=== PATIENT | female | born 1935 | race Caucasian/White ===

== ENCOUNTER 2020-12-22 09:11 | Observation (INO) | payer MEDICARE ==
[~2020-12-22 09:11] MED LIST: PREMYELOGRAM MEDICATION REVIEW 1 EACH MISC PO NR
--- NOTE | 2020-12-22 09:28 | ED ---
General Adult HPI - General Time Seen by Provider: 12/22/20 09:11 Source: patient, RN notes reviewed, old records reviewed - History of Present Illness Initial comments: This is an 85-year-old female has past medical history significant for high blood pressure and a valve replacement. Patient comes in today because she was scheduled for a myelogram and while she was there it was noted that her heart rate dipped into the 30s and they wanted her to be evaluated. Patient states over the last couple of months she's noticed that she is much weaker than normal. Patient while lying in bed states she is asymptomatic. - Related Data Home Medications Medication Instructions Recorded Confirmed Aspirin [Adult Low Dose Aspirin EC] 81 mg PO DAILY 11/24/20 12/22/20 DULoxetine HCL [Cymbalta] 60 mg PO DAILY 11/24/20 12/22/20 Gabapentin [Neurontin] 100 mg PO TID 11/24/20 12/22/20 HYDROcodone/APAP 10-325MG [[place] 1 tab PO TID PRN 11/24/20 12/22/20 10-325] Losartan Potassium [Cozaar] 25 mg PO DAILY 11/24/20 12/22/20 Metoprolol Succinate [Toprol XL] 25 mg PO DAILY 11/24/20 12/22/20 Multivit-Min/Iron/Folic/Lutein 1 tab PO DAILY 11/24/20 12/22/20 [Centrum Silver Women Tablet] Naproxen Sodium [Aleve] 220 mg PO BID PRN 11/24/20 12/22/20 Pravastatin Sodium [Pravachol] 80 mg PO HS 11/24/20 12/22/20 Vit C/E/Zn/Coppr/Lutein/Zeaxan 1 cap PO DAILY 11/24/20 12/22/20 [Preservision Areds 2 Softgel] Calcium Carbonate [Tums] 500 mg PO QID PRN 12/22/20 12/22/20 Dizzy Stop Herbal 1 cap PO DAILY PRN 12/22/20 12/22/20 Pantoprazole [Protonix] 40 mg PO DAILY 12/22/20 12/22/20 Tolterodine ER [Detrol LA] 4 mg PO DAILY 12/22/20 12/22/20 Allergies Allergy/AdvReac Type Severity Reaction Status Date / Time No Known Allergies Allergy Verified 12/22/20 09:28 Review of Systems ROS Statement: Those systems with pertinent positive or pertinent negative responses have been documented in the HPI. ROS Other: All systems not noted in ROS Statement are negative. Past Medical History Past Medical History: Diabetes Mellitus, Hyperlipidemia, Hypertension Additional Past Medical History / Comment(s): macular degeneration causing her to be dizzy at times, lumbar back pain radiate to bilateral legs, weakness, and falls frequently. History of Any Multi-Drug Resistant Organisms: None Reported Past Surgical History: Cardiac Valve Replacement, Joint Replacement, Tubal Ligation Additional Past Surgical History / Comment(s): bovin heart valve, abdominal aort ic aneursym repair, bilateral hip replacement, hip revision, Past Anesthesia/Blood Transfusion Reactions: No Reported Reaction Past Psychological History: Depression Additional Psychological History / Comment(s): insomnia Smoking Status: Former smoker Past Alcohol Use History: None Reported Past Drug Use History: None Reported General Exam - General Exam Comments Initial Comments: GENERAL: Patient is well-developed and well-nourished. Patient is nontoxic and well- hydrated and is in mild distress. ENT: Neck is soft and supple. No significant lymphadenopathy is noted. Oropharynx is clear. Moist mucous membranes. Neck has full range of motion without eliciting any pain. EYES: The sclera were anicteric and conjunctiva were pink and moist. Extraocular movements were intact and pupils were equal round and reactive to light. Eyelids were unremarkable. PULMONARY: Unlabored respirations. Good breath sounds bilaterally. No audible rales rhonchi or wheezing was noted. CARDIOVASCULAR: Patient has a regular bradycardic rhythm at about 40 beats a minute ABDOMEN: Soft and nontender with normal bowel sounds. SKIN: Skin is clear with no lesions or rashes and otherwise unremarkable. NEUROLOGIC: Patient is alert and oriented x3. Cranial nerves II through XII are grossly intact. Motor and sensory are also intact. Normal speech, volume and content. Symmetrical smile. MUSCULOSKELETAL: Normal extremities with adequate strength and full range of motion. LYMPHATICS: No significant lymphadenopathy is noted PSYCHIATRIC: Normal psychiatric evaluation. Course Vital Signs 12/22/20 12/22/20 12/22/20 08:25 09:25 09:30 Temperature 98.8 F Pulse Rate 32 L 34 L Pulse Rate [ 34 L Pulse Oximetery ] Respiratory 18 16 18 Rate Blood Pressure 132/83 132/83 Blood Pressure 184/68 [Left Arm] O2 Sat by Pulse 97 98 93 L Oximetry 12/22/20 12/22/20 09:38 10:30 Temperature Pulse Rate 36 L Pulse Rate [ 35 L Pulse Oximetery ] Respiratory 18 Rate Blood Pressure 154/78 Blood Pressure [Left Arm] O2 Sat by Pulse 100 Oximetry Medical Decision Making - Medical Decision Making EKG shows a sinus bradycardia at 32 beats a minute with a second-degree AV block Mobitz type II AL interval is 238 QRS is 152 QT interval is 552 QTC is 402. chest x-ray shows no acute abnormality. I spoke with some physicians agreed to admit the patient admitted the patient wrote admitting orders. I consulted cardiology - Lab Data Result diagrams: 12/22/20 09:37 12/22/20 09:37 Lab Results 12/22/20 12/22/20 12/22/20 Range/Units 09:37 09:37 09:37 WBC 7.9 (3.8-10.6) k/uL RBC 4.56 (3.80-5.40) m/uL Hgb 13.6 (11.4-16.0) gm/dL Hct 40.3 (34.0-46.0) % MCV 88.3 (80.0-100.0) fL MCH 29.9 (25.0-35.0) pg MCHC 33.9 (31.0-37.0) g/dL RDW 13.9 (11.5-15.5) % Plt Count 471 H (150-450) k/uL MPV 9.1 Neutrophils % 70 % Lymphocytes % 14 % Monocytes % 10 % Eosinophils % 5 % Basophils % 1 % Neutrophils # 5.5 (1.3-7.7) k/uL Lymphocytes # 1.1 (1.0-4.8) k/uL Monocytes # 0.8 (0-1.0) k/uL Eosinophils # 0.4 (0-0.7) k/uL Basophils # 0.1 (0-0.2) k/uL PT 10.8 (9.0-12.0) sec INR 1.0 (<1.2) APTT 18.9 L (22.0-30.0) sec Sodium 139 (137-145) mmol/L Potassium 5.0 (3.5-5.1) mmol/L Chloride 105 (98-107) mmol/L Carbon Dioxide 27 (22-30) mmol/L Anion Gap 7 mmol/L BUN 27 H (7-17) mg/dL Creatinine 0.94 (0.52-1.04) mg/dL Est GFR (CKD-EPI)AfAm 65 (>60 ml/min/1.73 sqM) Est GFR (CKD-EPI)NonAf 56 (>60 ml/min/1.73 sqM) Glucose 99 (74-99) mg/dL Calcium 9.7 (8.4-10.2) mg/dL Magnesium 1.9 (1.6-2.3) mg/dL Total Bilirubin 0.8 (0.2-1.3) mg/dL AST 31 (14-36) U/L ALT 16 (4-34) U/L Alkaline Phosphatase 78 (38-126) U/L Troponin I (0.000-0.034) ng/mL Total Protein 7.3 (6.3-8.2) g/dL Albumin 4.2 (3.5-5.0) g/dL Coronavirus (PCR) (Not Detectd) 12/22/20 12/22/20 Range/Units 09:37 09:37 WBC (3.8-10.6) k/uL RBC (3.80-5.40) m/uL Hgb (11.4-16.0) gm/dL Hct (34.0-46.0) % MCV (80.0-100.0) fL MCH (25.0-35.0) pg MCHC (31.0-37.0) g/dL RDW (11.5-15.5) % Plt Count (150-450) k/uL MPV Neutrophils % % Lymphocytes % % Monocytes % % Eosinophils % % Basophils % % Neutrophils # (1.3-7.7) k/uL Lymphocytes # (1.0-4.8) k/uL Monocytes # (0-1.0) k/uL Eosinophils # (0-0.7) k/uL Basophils # (0-0.2) k/uL PT (9.0-12.0) sec INR (<1.2) APTT (22.0-30.0) sec Sodium (137-145) mmol/L Potassium (3.5-5.1) mmol/L Chloride (98-107) mmol/L Carbon Dioxide (22-30) mmol/L Anion Gap mmol/L BUN (7-17) mg/dL Creatinine (0.52-1.04) mg/dL Est GFR (CKD-EPI)AfAm (>60 ml/min/1.73 sqM) Est GFR (CKD-EPI)NonAf (>60 ml/min/1.73 sqM) Glucose (74-99) mg/dL Calcium (8.4-10.2) mg/dL Magnesium (1.6-2.3) mg/dL Total Bilirubin (0.2-1.3) mg/dL AST (14-36) U/L ALT (4-34) U/L Alkaline Phosphatase (38-126) U/L Troponin I <0.012 (0.000-0.034) ng/mL Total Protein (6.3-8.2) g/dL Albumin (3.5-5.0) g/dL Coronavirus (PCR) Not Detected (Not Detectd) Disposition Clinical Impression: Bradycardia Disposition: ADMITTED IP TO THIS HOSP Referrals: Varun Maher MD [Primary Care Provider] - 1-2 days Time of Disposition: 11:20
[2020-12-22] MEDS ORDERED: ATROPINE SULFATE 0.1 MG/ML 10ML SYRINGE IV STA (09:45)
[2020-12-22 09:49] LABS: Basophils # (A) 0.1 k/uL (0-0.2); Basophils % (A) 1 %; Eosinophils # (A) 0.4 k/uL (0-0.7); Eosinophils % (A) 5 %; HCT 40.3 % (34.0-46.0); HGB 13.6 gm/dL (11.4-16.0); Lymphocytes # (A) 1.1 k/uL (1.0-4.8); Lymphocytes % (A) 14 %; MCH 29.9 pg (25.0-35.0); MCHC 33.9 g/dL (31.0-37.0); MCV 88.3 fL (80.0-100.0); Mean Platelet Volume 9.1; Monocytes # (A) 0.8 k/uL (0-1.0); Monocytes % (A) 10 %; Neutrophils # (A) 5.5 k/uL (1.3-7.7); Neutrophils % (A) 70 %; Platelet Count 471 k/uL (150-450); RBC 4.56 m/uL (3.80-5.40); RDW 13.9 % (11.5-15.5); WBC 7.9 k/uL (3.8-10.6)
[2020-12-22] MEDS ORDERED: KETOROLAC 15 MG/ML 1 ML VIAL IM STA (10:01)
[2020-12-22 10:07] LABS: Albumin 4.2 g/dL (3.5-5.0); Calcium 9.7 mg/dL (8.4-10.2); Magnesium 1.9 mg/dL (1.6-2.3); Total Bilirubin 0.8 mg/dL (0.2-1.3); Total Protein 7.3 g/dL (6.3-8.2)
[2020-12-22 10:14] LABS: Prothrombin Time 10.8 sec (9.0-12.0)
[2020-12-22 10:19] LABS: Partial Thromboplastin Time 18.9 sec (22.0-30.0)
--- NOTE | 2020-12-22 11:05 | XR ---
EXAMINATION TYPE: XR lumbosacral spine min 4V DATE OF EXAM: 12/22/2020 Comparison: 11/15/2020 Clinical History: 85-year-old female with fall and pain . Findings: IVC filter. Left-sided common iliac vascular stent. Multiple surgical clips in the pelvis. Osteopenia . Severe hypertrophic facet arthropathy throughout. Severe degenerative disc disease throughout. Baas trup's disease. Patchy sclerosis throughout. Degenerative grade 1 retrolisthesis L1-L2 and L2-L3 and grade 1 anterolisthesis L4-L5. [facility] within the lower thoracic spine. Impression: 1. Advanced hypertrophic facet arthropathy and advanced degenerative disc disease throughout. Degener ative grade 1 spondylolistheses L1-L2, L2-L3, and L4-L5. 2. No vertebral compression collapse is identified. 3. Diffuse patchy sclerosis may be sclerosis reactive to the advanced degenerative changes. Correlate for any known primary neoplasm to exclude osteoblastic metastases. Consideration can be given to nuc le[facility] medicine whole body bone scan if clinically indicated. 4. 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
[2020-12-22] MEDS ORDERED: SODIUM CHLORIDE 0.9% 1,000 ML IV ONE (11:21)
--- NOTE | 2020-12-22 14:08 | P.CRDCN ---
History of Present Illness Consult date: 12/22/20 History of present illness: HISTORY OF PRESENT ILLNESS: This is a 85-year-old female with a past medical history significant for hypertension, hyperlipidemia, diabetes mellitus, chronic lumbar back pain, abdominal aortic aneurysm repair, and history of heart valve replacement. Patient states she lives in [place]. 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 We have been asked to see the patient in consultation for bradycardia. Patient examined at the bedside with Dr. Agustin. Patient was scheduled for myelogram today in interventional radiology that was ordered by Dr. Valentin. Patient was found to bradycardic with a heart rate in the 30-40s. Patient denied a history of bradycardia in the past. Patients procedure was cancelled and she was admitted to the hospital for further evaluation. Patient reports since the beginning of the year she has been very fatigued with low energy levels. She reports having multiple episodes of falling since that time too which she states she was previously not experiencing. She reports feeling dizzy and lightheaded occasionally as well. She takes Metoprolol succinate 25mg at home. Patient reports having a valve replacement at [facility] in the past. EKG reveals second degree heart block Chest xray pending at the time of dictation Laboratory data: WBC 7.9. Hemoglobin 13.6. Platelet count 471. Sodium 139. Potassium 5.0. BUN 27. Creatinine 0.94. Magnesium 1.9. Current home cardiac medications include aspirin 81 mg daily, Pravachol 80 mg daily, losartan 25 mg daily, metoprolol succinate 25 mg daily REVIEW OF SYSTEMS: At the time of my exam: CONSTITUTIONAL: Denies fever or chills. HEENT: Denies blurred vision, vision changes, or eye pain. Denies hemoptysis CARDIOVASCULAR: Denies chest pain. Denies orthopnea. Denies PND. Denies palpitations RESPIRATORY: Denies shortness of breath. GASTROINTESTINAL: Denies abdominal pain. Denies nausea or vomiting. HEMATOLOGIC: Denies bleeding disorders. GENITOURINARY: Denies any blood in urine. SKIN: Denies pruitis. Denies rash. PHYSICAL EXAM: VITAL SIGNS: Reviewed. GENERAL: Well-developed in no acute distress. HEENT: Head is normocephalic. Pupils are equal, round. Sclerae anicteric. Mucous membranes of the mouth are moist. Neck supple. No JVD or thyromegaly LUNGS: Respirations even and unlabored. Lungs essentially clear to auscultation bilaterally. HEART: Regular rate and rhythm. S1 and S2 heard. Soft systolic murmur noted. ABDOMEN: Soft. Nondistended. Nontender. EXTREMITIES: Normal range of motion. No clubbing or cyanosis. Peripheral pulses intact. No lower extremity edema NEUROLOGIC: Awake and alert. Oriented x 3. ASSESSMENT: Bradycardia Second degree heart block with 2:1 conduction Progressive fatigue and falls x 3-4 months Hypertension Hyperlipidemia History of valve replacement, suspected TAVR History of abdominal aortic aneurysm repair PLAN: Discontinue metoprolol. Avoid AV huyen blocking agents Continue telemetry monitoring Repeat EKG in AM Obtain TSH Daily Hibiclens baths No EKG patches to left chest Patient will likely require PPM insertion within the next 48 hours. This was discussed in detail with the patient at the bedside. Obtain records from [facility] from patients valve replacement surgery Further recommendations pending patient course. Nurse practitioner note has been reviewed by physician. Signing provider agrees with the documented findings, assessment, and plan of care. Past Medical History Past Medical History: Diabetes Mellitus, Hyperlipidemia, Hypertension Additional Past Medical History / Comment(s): macular degeneration causing her to be dizzy at times, lumbar back pain radiate to bilateral legs, weakness, and falls frequently. History of Any Multi-Drug Resistant Organisms: None Reported Past Surgical History: Cardiac Valve Replacement, Joint Replacement, Tubal Ligation Additional Past Surgical History / Comment(s): bovin heart valve, abdominal aortic aneursym repair, bilateral hip replacement, hip revision, Past Anesthesia/Blood Transfusion Reactions: No Reported Reaction Past Psychological History: Depression Additional Psychological History / Comment(s): insomnia Smoking Status: Former smoker Past Alcohol Use History: None Reported Past Drug Use History: None Reported Medications and Allergies Home Medications Medication Instructions Recorded Confirmed Type Aspirin [Adult Low Dose Aspirin EC] 81 mg PO DAILY 11/24/20 12/22/20 History DULoxetine HCL [Cymbalta] 60 mg PO DAILY 11/24/20 12/22/20 History Gabapentin [Neurontin] 100 mg PO TID 11/24/20 12/22/20 History HYDROcodone/APAP 10-325MG [[place] 1 tab PO TID PRN 11/24/20 12/22/20 History 10-325] Losartan Potassium [Cozaar] 25 mg PO DAILY 11/24/20 12/22/20 History Metoprolol Succinate [Toprol XL] 25 mg PO DAILY 11/24/20 12/22/20 History Multivit-Min/Iron/Folic/Lutein 1 tab PO DAILY 11/24/20 12/22/20 History [Centrum Silver Women Tablet] Naproxen Sodium [Aleve] 220 mg PO BID PRN 11/24/20 12/22/20 History Pravastatin Sodium [Pravachol] 80 mg PO HS 11/24/20 12/22/20 History Vit C/E/Zn/Coppr/Lutein/Zeaxan 1 cap PO DAILY 11/24/20 12/22/20 History [Preservision Areds 2 Softgel] Calcium Carbonate [Tums] 500 mg PO QID PRN 12/22/20 12/22/20 History Dizzy Stop Herbal 1 cap PO DAILY PRN 12/22/20 12/22/20 History Pantoprazole [Protonix] 40 mg PO DAILY 12/22/20 12/22/20 History Tolterodine ER [Detrol LA] 4 mg PO DAILY 12/22/20 12/22/20 History Allergies Allergy/AdvReac Type Severity Reaction Status Date / Time No Known Allergies Allergy Verified 12/22/20 09:28 Physical Exam Vitals: Vital Signs Temp Pulse Pulse Resp BP BP Pulse Ox 12/22/20 12:33 98 F 12/22/20 12:00 55 L 18 176/83 97 12/22/20 11:57 98.4 F 39 L 16 132/53 92 L 12/22/20 11:00 35 L 18 154/78 97 12/22/20 10:30 36 L 18 154/78 100 12/22/20 09:38 35 L 12/22/20 09:30 34 L 18 132/83 93 L 12/22/20 09:25 98.8 F 32 L 16 132/83 98 12/22/20 08:25 34 L 18 184/68 97 Intake and Output 12/21/20 12/22/20 12/22/20 22:59 06:59 14:59 Other: Weight 68.039 kg Results 12/22/20 09:37 12/22/20 09:37 Cardiac Enzymes 12/22/20 12/22/20 Range/Units 09:37 09:37 AST 31 (14-36) U/L Troponin I <0.012 (0.000-0.034) ng/mL Coagulation 12/22/20 Range/Units 09:37 PT 10.8 (9.0-12.0) sec APTT 18.9 L (22.0-30.0) sec CBC 12/22/20 Range/Units 09:37 WBC 7.9 (3.8-10.6) k/uL RBC 4.56 (3.80-5.40) m/uL Hgb 13.6 (11.4-16.0) gm/dL Hct 40.3 (34.0-46.0) % Plt Count 471 H (150-450) k/uL Comprehensive Metabolic Panel 12/22/20 Range/Units 09:37 Sodium 139 (137-145) mmol/L Potassium 5.0 (3.5-5.1) mmol/L Chloride 105 (98-107) mmol/L Carbon Dioxide 27 (22-30) mmol/L BUN 27 H (7-17) mg/dL Creatinine 0.94 (0.52-1.04) mg/dL Glucose 99 (74-99) mg/dL Calcium 9.7 (8.4-10.2) mg/dL AST 31 (14-36) U/L ALT 16 (4-34) U/L Alkaline Phosphatase 78 (38-126) U/L Total Protein 7.3 (6.3-8.2) g/dL Albumin 4.2 (3.5-5.0) g/dL Current Medications Generic Name Dose Route Start Last Admin Trade Name Freq PRN Reason Stop Dose Admin Hydrocodone Bitart/Acetaminophen 1 each 12/22/20 12:40 Hydrocodone/Apap 10-325mg 1 Each Tab PO TID PRN Pain Aspirin 81 mg 12/23/20 09:00 Aspirin 81 Mg PO DAILY [facility] Calcium Carbonate/Glycine 500 mg 12/22/20 12:40 Calcium Carbonate 500 Mg Chewable PO QID PRN GERD Duloxetine HCl 60 mg 12/23/20 09:00 Duloxetine Hcl 60 Mg Capsule.Dr PO DAILY BUD Gabapentin 100 mg 12/22/20 16:00 Gabapentin 100 Mg Cap PO TID [facility] Sodium Chloride 1,000 mls @ 75 mls/hr 12/22/20 11:21 12/22/20 12:26 Saline 0.9% IV 12/23/20 00:40 75 mls/hr .[id number] ONE Administration Losartan Potassium 25 mg 12/22/20 12:45 Losartan 25 Mg Tab PO DAILY [facility] Multivitamins 1 each 12/23/20 09:00 Multivitamins, Thera 1 Each Tab PO DAILY BUD Multivitamins/Minerals 1 each 12/23/20 09:00 Vit A,C & I-Bhczyk-Qjgrdaic 1 Each Tab PO DAILY BUD Oxybutynin Chloride 10 mg 12/23/20 09:00 Oxybutynin 10 Mg Tab.Er.24 PO DAILY [facility] Pantoprazole Sodium 40 mg 12/23/20 07:30 Pantoprazole 40 Mg Tablet PO AC-BRKFST [facility] Pravastatin Sodium 80 mg 12/22/20 21:00 Pravastatin Sodium 80 Mg Tab PO [facility] Intake and Output 12/21/20 12/22/20 12/22/20 22:59 06:59 14:59 Other: Weight 68.039 kg Patient Weight 12/23/20 06:59 Weight 68.039 kg 12/22/20 09:37 12/22/20 09:37
[2020-12-22] MEDS: HYDROcodone/APAP 10-325MG 1 EACH TAB PO PRN (14:52)
[2020-12-22] MEDS: LOSARTAN 25 MG TAB PO SCH (14:54)
--- NOTE | 2020-12-22 15:35 | XR ---
EXAMINATION TYPE: XR chest 2V DATE OF EXAM: 12/22/2020 COMPARISON: None INDICATION: Chest pain, short of breath TECHNIQUE: Frontal and lateral views of the chest are obtained. FINDINGS: The heart size is normal. The pulmonary vasculature is normal. There are a few scattered patchy infiltrates which are nonspecific. Atypical pneumonia can be conside red. There may be a more focal area of increased density in the retrocardiac region on the lateral pr ojection. Follow-up is recommended. IMPRESSION: 1. Nonspecific infiltrate may be more focal on the lateral projection in the retrocardiac region. Cor relate for pneumonia. Atypical pneumonia could be considered. Follow-up is recommended
[2020-12-22] MEDS ORDERED: ACETAMINOPHEN TAB 325 MG TAB PO PRN (15:57)
--- NOTE | 2020-12-22 16:04 | P.HPIM ---
History of Present Illness H&P Date: 12/22/20 Chief Complaint: Low heart rate This is a 85-year-old female with past medical history noted below significant for prior TAVR presented to the emergency room for further evaluation of elevated blood pressure and low heart rate. Patient was scheduled for a myelogram today and was noted to be bradycardic with a heart rate in the 30s and 40s. Patient herself denies any dizziness or lightheadedness. Her procedure was canceled and she was advised to come to the emergency room for further evaluation. In the ER, 12-lead EKG showed evidence of second-degree heart block. Patient is maintained on metoprolol at home. She was placed on observation with cardiology consultation. Review of Systems Review of system: 14 points review of systems were obtained and were negative except to what were mentioned in the HPI. Past Medical History Past Medical History: Diabetes Mellitus, Hyperlipidemia, Hypertension Additional Past Medical History / Comment(s): macular degeneration causing her to be dizzy at times, lumbar back pain radiate to bilateral legs, weakness, and falls frequently. History of Any Multi-Drug Resistant Organisms: None Reported Past Surgical History: Cardiac Valve Replacement, Joint Replacement, Tubal Ligation Additional Past Surgical History / Comment(s): bovin heart valve, abdominal aortic aneursym repair, bilateral hip replacement, hip revision, Past Anesthesia/Blood Transfusion Reactions: No Reported Reaction Past Psychological History: Depression Additional Psychological History / Comment(s): insomnia Smoking Status: Former smoker Past Alcohol Use History: None Reported Past Drug Use History: None Reported Medications and Allergies Home Medications Medication Instructions Recorded Confirmed Type Aspirin [Adult Low Dose Aspirin EC] 81 mg PO DAILY 11/24/20 12/22/20 History DULoxetine HCL [Cymbalta] 60 mg PO DAILY 11/24/20 12/22/20 History Gabapentin [Neurontin] 100 mg PO TID 11/24/20 12/22/20 History HYDROcodone/APAP 10-325MG [[place] 1 tab PO TID PRN 11/24/20 12/22/20 History 10-325] Losartan Potassium [Cozaar] 25 mg PO DAILY 11/24/20 12/22/20 History Metoprolol Succinate [Toprol XL] 25 mg PO DAILY 11/24/20 12/22/20 History Multivit-Min/Iron/Folic/Lutein 1 tab PO DAILY 11/24/20 12/22/20 History [Centrum Silver Women Tablet] Naproxen Sodium [Aleve] 220 mg PO BID PRN 11/24/20 12/22/20 History Pravastatin Sodium [Pravachol] 80 mg PO HS 11/24/20 12/22/20 History Vit C/E/Zn/Coppr/Lutein/Zeaxan 1 cap PO DAILY 11/24/20 12/22/20 History [Preservision Areds 2 Softgel] Calcium Carbonate [Tums] 500 mg PO QID PRN 12/22/20 12/22/20 History Dizzy Stop Herbal 1 cap PO DAILY PRN 12/22/20 12/22/20 History Pantoprazole [Protonix] 40 mg PO DAILY 12/22/20 12/22/20 History Tolterodine ER [Detrol LA] 4 mg PO DAILY 12/22/20 12/22/20 History Allergies Allergy/AdvReac Type Severity Reaction Status Date / Time No Known Allergies Allergy Verified 12/22/20 09:28 Physical Exam Vitals: Vital Signs Temp Pulse Pulse Resp BP BP Pulse Ox 12/22/20 12:33 98 F 12/22/20 12:00 55 L 18 176/83 97 12/22/20 11:57 98.4 F 39 L 16 132/53 92 L 12/22/20 11:00 35 L 18 154/78 97 12/22/20 10:30 36 L 18 154/78 100 12/22/20 09:38 35 L 12/22/20 09:30 34 L 18 132/83 93 L 12/22/20 09:25 98.8 F 32 L 16 132/83 98 12/22/20 08:25 34 L 18 184/68 97 Intake and Output 12/21/20 12/22/20 12/22/20 22:59 06:59 14:59 Intake Total 200 Balance 200 Intake: Oral 200 Other: # Voids 1 Weight 68.039 kg General: The patient is awake and alert, in no distress Eye: there is normal conjunctiva bilaterally. Neck: The neck is supple, there is no JVD. Cardiovascular: Normal S1-S2, no S3-S4, no murmurs. Respiratory: Lungs clear to auscultation bilaterally Gastrointestinal: Abdomen is soft, nontender Musculoskeletal: There is no pedal edema. Neurological:. Speech is normal. Skin: Skin is warm and dry Results CBC & Chem 7: 12/22/20 09:37 12/22/20 09:37 Labs: Abnormal Lab Results - Last 24 Hours (Table) 12/22/20 12/22/20 12/22/20 Range/Units 09:37 09:37 09:37 Plt Count 471 H (150-450) k/uL APTT 18.9 L (22.0-30.0) sec BUN 27 H (7-17) mg/dL Thrombosis Risk Factor Assmnt - Choose All That Apply Any of the Below Risk Factors Present?: Yes Each Factor Represents 1 point: Obesity (BMI >25) Other Risk Factors: Yes Each Risk Factor Represents 3 Points: Age 75 years or older Thrombosis Risk Factor Assessment Total Risk Factor Score: 4 Thrombosis Risk Factor Assessment Level: Moderate Risk Assessment and Plan Assessment: This is a 85-year-old female with past medical history noted below who presented to the emergency room with bradycardia. Patient was evaluated and placed on observation for further management of her medical problems noted below 1. Second-degree heart block, patient was seen and evaluated by cardiology. Considering pacemaker implantation within the next 48 hours. Continue telemetry monitoring. Metoprolol dose was discontinued. Thyroid function tests within normal range. 2. Nonspecific infiltrates noted on chest x-ray may represent atelectasis. No clinical symptoms of pneumonia. I would obtain full calcitonin for further evaluation. Incentive spirometer at bedside. 3. Essential hypertension: Blood pressure not well controlled on presentation. Home regimen resumed. We will continue to monitor closely 4. Chronic medical problems: Hyperlipidemia, status post TAVR, history of abdominal aortic aneurysm repair 5. DVT prophylaxis with subcu Lovenox
[2020-12-22] MEDS: GABAPENTIN 100 MG CAP PO SCH ×2 (16:21→21:23)
[2020-12-22] MEDS: PRAVASTATIN SODIUM 80 MG TAB PO SCH (21:24)
[2020-12-23] MEDS: HYDROcodone/APAP 10-325MG 1 EACH TAB PO PRN ×2 (05:34→17:55)
--- NOTE | 2020-12-23 07:41 | P.PN ---
Subjective Progress Note Date: 12/23/20 Principal diagnosis: AV block This is an 85-year-old female patient with a past medical history significant for hypertension and dyslipidemia and valvular heart disease who underwent transcutaneous aortic valve replacement in the past was admitted to the hospital with bradycardia and she was found to have second-degree AV block type II. She is scheduled to undergo a permanent pacemaker implantation by Dr. Agustin in the next 24 hours. She was seen this morning. She remains asymptomatic at this point. She denies any chest pain or chest discomfort or shortness of breath. She is not on any AV huyen ashanti agents at this point. Objective - Vital Signs Vital signs: Vital Signs Temp 98.5 F 12/23/20 02:00 Pulse 56 L 12/23/20 02:00 Resp 16 12/23/20 02:00 BP 143/64 12/23/20 02:00 Pulse Ox 97 12/23/20 02:00 Intake & Output 12/22/20 12/23/20 12/23/20 18:59 06:59 18:59 Intake Total 200 Balance 200 Weight 68.039 kg Intake: Oral 200 Other: Voiding Method Bedside Commode # Voids 1 2 - Constitutional General appearance: Present: no acute distress - Respiratory Respiratory: bilateral: CTA - Cardiovascular Rhythm: regular - Labs CBC & Chem 7: 12/22/20 09:37 12/22/20 09:37 Labs: Abnormal Lab Results - Last 24 Hours (Table) 12/22/20 12/22/20 12/22/20 Range/Units 09:37 09:37 09:37 Plt Count 471 H (150-450) k/uL APTT 18.9 L (22.0-30.0) sec BUN 27 H (7-17) mg/dL Procalcitonin (0.02-0.09) ng/mL 12/22/20 Range/Units 09:37 Plt Count (150-450) k/uL APTT (22.0-30.0) sec BUN (7-17) mg/dL Procalcitonin 0.27 H (0.02-0.09) ng/mL Assessment and Plan Assessment: Assessment #1 bradycardia #2 second-degree AV block type II #3 valvular heart disease Plan #1 continue holding any AV huyen ashanti agents #2 the patient is in process of having a permanent pacemaker
--- NOTE | 2020-12-23 09:17 | P.PN ---
Subjective Progress Note Date: 12/23/20 Patient is doing fairly well today. No acute events overnight. Heart rate in the 50s to 60s range. Objective - Vital Signs Vital signs: Vital Signs Temp 98.1 F 12/23/20 08:07 Pulse 64 12/23/20 08:07 Resp 18 12/23/20 08:07 BP 151/82 12/23/20 08:07 Pulse Ox 98 12/23/20 08:07 Intake & Output 12/22/20 12/23/20 12/23/20 18:59 06:59 18:59 Intake Total 200 Balance 200 Weight 68.039 kg Intake: Oral 200 Other: Voiding Method Bedside Commode # Voids 1 2 - Exam General: The patient is awake and alert, in no distress Eye: there is normal conjunctiva bilaterally. Neck: The neck is supple, there is no JVD. Cardiovascular: Normal S1-S2, no S3-S4, no murmurs. Respiratory: Lungs clear to auscultation bilaterally Gastrointestinal: Abdomen is soft, nontender Musculoskeletal: There is no pedal edema. Neurological:. Speech is normal. Skin: Skin is warm and dry - Labs CBC & Chem 7: 12/22/20 09:37 12/22/20 09:37 Labs: Abnormal Lab Results - Last 24 Hours (Table) 12/22/20 12/22/20 12/22/20 Range/Units 09:37 09:37 09:37 Plt Count 471 H (150-450) k/uL APTT 18.9 L (22.0-30.0) sec BUN 27 H (7-17) mg/dL Procalcitonin (0.02-0.09) ng/mL 12/22/20 Range/Units 09:37 Plt Count (150-450) k/uL APTT (22.0-30.0) sec BUN (7-17) mg/dL Procalcitonin 0.27 H (0.02-0.09) ng/mL Assessment and Plan Assessment: This is a 85-year-old female with past medical history noted below who presented to the emergency room with bradycardia. Patient was evaluated and placed on observation for further management of her medical problems noted below 1. Second-degree heart block, patient was seen and evaluated by cardiology. Considering pacemaker implantation. Continue telemetry monitoring. Metoprolol dose was discontinued. Thyroid function tests within normal range. 2. Nonspecific infiltrates noted on chest x-ray may represent atelectasis. No clinical symptoms of pneumonia. Awaiting pro-calcitonin. Incentive spirometer at bedside. 3. Essential hypertension: Blood pressure not well controlled on presentation. Home regimen resumed. We will continue to monitor closely 4. Chronic medical problems: Hyperlipidemia, status post TAVR, history of abdominal aortic aneurysm repair 5. DVT prophylaxis with subcu Lovenox
[2020-12-23] MEDS: LOSARTAN 25 MG TAB PO SCH (09:38)
[2020-12-23] MEDS ORDERED: ceFAZolin 1,000 MG in SODIUM CHLORIDE 0.9% IRRIGATIO 250 ML IRRIGATION ONE (10:25)
[2020-12-23] MEDS ORDERED: LIDOCAINE 1% INJ 10MG/ML (20 ML MDV) ONE (10:48)
[2020-12-23] MEDS ORDERED: fentaNYL (PF) 50 MCG/ML 2 ML AMP ONE (10:49)
[2020-12-23] MEDS ORDERED: IV FLUID CONTINUATION 100 ML IV ONE (10:50)
[2020-12-23] MEDS ORDERED: fentaNYL (PF) 50 MCG/ML 2 ML AMP IVP ONE (11:02)
[2020-12-23] MEDS ORDERED: LIDOCAINE 1% INJ 10MG/ML (20 ML MDV) SQ ONE ×2 (11:12→11:15)
[2020-12-23] MEDS ORDERED: MIDAZOLAM 2 MG/2 ML VIAL IVP ONE (11:20)
[2020-12-23] MEDS ORDERED: HYDROcodone/APAP 5-325MG 1 EACH TAB PO PRN (12:40)
[2020-12-23] MEDS ORDERED: ACETAMINOPHEN IV (For NPO) 1,000 MG in EMPTY BAG 1 BAG IVPB ONE (12:40)
[2020-12-23] MEDS ORDERED: ACETAMINOPHEN TAB 325 MG TAB PO PRN (12:40)
--- NOTE | 2020-12-23 13:28 | XR ---
EXAMINATION TYPE: XR chest 1V portable DATE OF EXAM: 12/23/2020 COMPARISON: 12/22/2020 INDICATION: Lead placement check TECHNIQUE: Single frontal view of the chest is obtained. FINDINGS: The heart size is normal. The pulmonary vasculature is normal. Mild perihilar infiltrates are present. Correlate for atypical pneumonia. Pulmonary edema could be co nsidered. Pacemaker is placed. Pacemaker lead positioning appears typical. No pneumothorax is evident. IMPRESSION: 1. Mild perihilar infiltrate. Correlate for atypical pulmonary edema. Atypical pneumonia should be co nsidered. 2. No pneumothorax post pacemaker placement.
[2020-12-23] MEDS: MULTIVITAMINS, THERA 1 EACH TAB PO SCH (13:31)
[2020-12-23] MEDS: OXYBUTYNIN 10 MG TAB.ER.24 PO SCH (13:31)
[2020-12-23] MEDS: DULoxetine HCL 60 MG CAPSULE.DR PO SCH (13:31)
[2020-12-23] MEDS: GABAPENTIN 100 MG CAP PO SCH ×3 (13:31→20:41)
[2020-12-23] MEDS: PANTOPRAZOLE 40 MG TABLET PO SCH (13:31)
[2020-12-23] MEDS: VIT A,C & E-LUTEIN-MINERALS 1 EACH TAB PO SCH (13:31)
[2020-12-23] MEDS: ENOXAPARIN 40 MG/0.4 ML SYRINGE SQ SCH (13:31)
[2020-12-23] MEDS: ASPIRIN 81 MG PO SCH (13:31)
[2020-12-23] MEDS: AZITHROMYCIN 500 MG TAB PO SCH (13:38)
[2020-12-23] MEDS: amLODIPine 5 MG TAB PO SCH (13:38)
--- NOTE | 2020-12-23 13:58 | CE ---
CARDIAC ELECTROPHYSIOLOGY REPORT This 85-year-old female who has had TAVR done about 2 years back, who has been experiencing falls, tiredness, fatigue and dizzy spells for several months now. She came in with 2:1 heart block. She was on low-dose beta blockers. This was discontinued, but she continued to have episodes of 2:1 heart block despite that. She was brought in for dual-chamber pacemaker implant. Patient was brought to the EP lab in a fasting state. Written informed consent was obtained prior to the procedure. The left shoulder area was prepped and draped as per protocol. 1% lidocaine was used for local anesthesia. A 4 cm incision was made parallel to the deltopectoral groove, about 1.5 cm medial to it. The incision was carried down to the level of the pectoralis muscle. A subfascial pocket was made. Hemostasis was assured. The left axillary vein was accessed at 2 separate points under fluoroscopy and via appropriately-sized introducer sheaths, 2 leads were positioned the right heart. The atrial lead was a Medtronic 52 cm in length, model #5076 and serial number [id number]. The lead was screwed in the right atrial appendage. The P waves were 2.4 mV, pacing impedance 832 ohms, pacing threshold 0.4 V at 0.5 milliseconds, 10 V test was negative. The RV lead was 58 cm, model #5076, serial number [id number]. This was screwed in the RV septum. R-waves 11.9 mV, pacing impedance of 1045 ohms, pacing threshold 0.7 V at 0.5 milliseconds, 10 V test negative. The leads were then connected to the new pacemaker generator, Medtronic Jany SDR MRI, model number W3DR01, serial number [id number]. The leads and generator were then placed in the subfascial pocket and the wound was closed in 3 layers and dressed per protocol. The device was programmed to DDDR mode at 60-130 ppm with a normal AV delay. The patient tolerated the procedure well without any acute complications. RESULTS: Successful dual-chamber pacemaker implantation for 2:1 AV block 2 years following TAVR. Patient was symptomatic with recurrent dizzy spells and recurrent falls. MMODL / IJN: [id number] /
[2020-12-23] MEDS: CALCIUM CARBONATE 500 MG CHEWABLE PO PRN (20:39)
[2020-12-23] MEDS: PRAVASTATIN SODIUM 80 MG TAB PO SCH (20:39)
[2020-12-23] MEDS ORDERED: LOPERAMIDE 2 MG CAP PO PRN (20:41)
[2020-12-24 03:13] VITALS: RESP 18
[2020-12-24 07:00] VITALS: BP 145/95; PULSE 77; TEMP 98.3
[2020-12-24] MEDS: CALCIUM CARBONATE 500 MG CHEWABLE PO PRN ×2 (07:05→13:39)
[2020-12-24] MEDS: PANTOPRAZOLE 40 MG TABLET PO SCH (07:05)
[2020-12-24] MEDS: HYDROcodone/APAP 10-325MG 1 EACH TAB PO PRN ×2 (07:55→13:39)
--- NOTE | 2020-12-24 08:46 | P.PN ---
Subjective Progress Note Date: 12/24/20 Principal diagnosis: AV block This is an 85-year-old female patient with a past medical history significant for hypertension and dyslipidemia and valvular heart disease who underwent transcutaneous aortic valve replacement in the past was admitted to the hospital with bradycardia and she was found to have second-degree AV block type II. The patient was seen today. She underwent yesterday successful placement of dual-chamber pacemaker. The chest x-ray showed no pneumothorax. The patient is asymptomatic from a cardiovascular standpoint of view. The patient would like to go home. From a cardiovascular standpoint of view, she can be discharged home Objective - Vital Signs Vital signs: Vital Signs Temp 98.3 F 12/24/20 07:00 Pulse 77 12/24/20 07:00 Resp 18 12/24/20 07:00 BP 145/95 12/24/20 07:00 Pulse Ox 97 12/24/20 07:00 Intake & Output 12/23/20 12/24/20 12/24/20 18:59 06:59 18:59 Intake Total 155 Balance 155 Intake: IV 155 Other: Voiding Method Bedside Commode # Voids 1 2 - Constitutional General appearance: Present: no acute distress - Respiratory Respiratory: bilateral: CTA - Cardiovascular Rhythm: regular Heart sounds: normal: S1, S2 - Labs CBC & Chem 7: 12/22/20 09:37 12/22/20 09:37 Assessment and Plan Assessment: Assessment #1 bradycardia #2 second-degree AV block type II #3 valvular heart disease Plan #1 continue holding any AV huyen ashanti agents #2 status post dual-chamber pacemaker #3 the patient can be discharged home
[2020-12-24] MEDS: ENOXAPARIN 40 MG/0.4 ML SYRINGE SQ SCH (09:12)
[2020-12-24] MEDS: GABAPENTIN 100 MG CAP PO SCH (09:13)
[2020-12-24] MEDS: LOSARTAN 25 MG TAB PO SCH (09:13)
[2020-12-24] MEDS: OXYBUTYNIN 10 MG TAB.ER.24 PO SCH (09:13)
[2020-12-24] MEDS: AZITHROMYCIN 500 MG TAB PO SCH (09:13)
[2020-12-24] MEDS: VIT A,C & E-LUTEIN-MINERALS 1 EACH TAB PO SCH (09:13)
[2020-12-24] MEDS: DULoxetine HCL 60 MG CAPSULE.DR PO SCH (09:13)
[2020-12-24] MEDS: amLODIPine 5 MG TAB PO SCH (09:13)
[2020-12-24] MEDS: MULTIVITAMINS, THERA 1 EACH TAB PO SCH (09:13)
[2020-12-24] MEDS: ASPIRIN 81 MG PO SCH (09:13)
[2020-12-24 11:08] LABS: African American GFR (CKD) 66 (>60 ml/min/1.73 sqM); Anion Gap 5 mmol/L; Basophils # (A) 0.1 k/uL (0-0.2); Basophils % (A) 1 %; Blood Urea Nitrogen 20 mg/dL (7-17); Carbon Dioxide 29 mmol/L (22-30); Chloride 105 mmol/L (98-107); Eosinophils # (A) 0.3 k/uL (0-0.7); Eosinophils % (A) 4 %; Glucose 108 mg/dL (74-99); HCT 37.8 % (34.0-46.0); HGB 12.7 gm/dL (11.4-16.0); Lymphocytes # (A) 0.7 k/uL (1.0-4.8); Lymphocytes % (A) 9 %; MCH 29.6 pg (25.0-35.0); MCHC 33.8 g/dL (31.0-37.0); MCV 87.6 fL (80.0-100.0); Magnesium 1.7 mg/dL (1.6-2.3); Mean Platelet Volume 8.6; Monocytes # (A) 0.8 k/uL (0-1.0); Monocytes % (A) 11 %; Neutrophils # (A) 5.8 k/uL (1.3-7.7); Neutrophils % (A) 75 %; Non-African American GFR(CKD) 57 (>60 ml/min/1.73 sqM); Platelet Count 413 k/uL (150-450); Potassium 4.1 mmol/L (3.5-5.1); RBC 4.31 m/uL (3.80-5.40); RDW 13.9 % (11.5-15.5); Sodium 139 mmol/L (137-145); WBC 7.8 k/uL (3.8-10.6)
--- NOTE | 2020-12-24 12:01 | P.DS ---
Providers Date of admission: 12/22/20 11:40 Expected date of discharge: 12/24/20 Attending physician: Ruben Peres Consults: 12/22/20 11:21 Consult Physician Urgent Consulting Provider: [facility] Consult Reason/Comments: Bradycardia Do you want consulting provider notified?: Yes Primary care physician: [facility] Course: This is a 85-year-old female with past medical history noted below who presented to the emergency room with bradycardia. Patient was evaluated and placed on observation for further management of her medical problems noted below 1. Second-degree heart block, patient was seen and evaluated by cardiology. Status post pacemaker implantation. Metoprolol dose was discontinued. Thyroid function tests within normal range. 2. Community-acquired pneumonia noted on chest x-ray with elevated pro calcitonin. We will finish 5 days course of antibiotic with Keflex and azithromycin 3. Essential hypertension: Blood pressure not well controlled on presentation. Added Norvasc 5 mg daily to her regimen 4. Chronic medical problems: Hyperlipidemia, status post TAVR, history of abdominal aortic aneurysm repair Patient Condition at Discharge: Stable Plan - Discharge Summary Discharge Rx Participant: No New Discharge Prescriptions: New Azithromycin 250 mg PO DAILY 1 Days #3 tab Cephalexin [Keflex] 500 mg PO Q6HR 3 Days #12 cap amLODIPine [Norvasc] 5 mg PO DAILY #30 tab Continue Multivit-Min/Iron/Folic/Lutein [Centrum Silver Women Tablet] 1 tab PO DAILY Naproxen Sodium [Aleve] 220 mg PO BID PRN PRN Reason: Pain HYDROcodone/APAP 10-325MG [Excelsior 10-325] 1 tab PO TID PRN PRN Reason: Pain DULoxetine HCL [Cymbalta] 60 mg PO DAILY Gabapentin [Neurontin] 100 mg PO TID Pravastatin Sodium [Pravachol] 80 mg PO HS Losartan Potassium [Cozaar] 25 mg PO DAILY Vit C/E/Zn/Coppr/Lutein/Zeaxan [Preservision Areds 2 Softgel] 1 cap PO DAILY Aspirin [Adult Low Dose Aspirin EC] 81 mg PO DAILY Dizzy Stop Herbal 1 cap PO DAILY PRN PRN Reason: Vertigo Tolterodine ER [Detrol LA] 4 mg PO DAILY Pantoprazole [Protonix] 40 mg PO DAILY Calcium Carbonate [Tums] 500 mg PO QID PRN PRN Reason: GERD Discontinued Metoprolol Succinate [Toprol XL] 25 mg PO DAILY Discharge Medication List Aspirin [Adult Low Dose Aspirin EC] 81 mg PO DAILY 11/24/20 [History] DULoxetine HCL [Cymbalta] 60 mg PO DAILY 11/24/20 [History] Gabapentin [Neurontin] 100 mg PO TID 11/24/20 [History] HYDROcodone/APAP 10-325MG [Excelsior 10-325] 1 tab PO TID PRN 11/24/20 [History] Losartan Potassium [Cozaar] 25 mg PO DAILY 11/24/20 [History] Multivit-Min/Iron/Folic/Lutein [Centrum Silver Women Tablet] 1 tab PO DAILY 11/24/20 [History] Naproxen Sodium [Aleve] 220 mg PO BID PRN 11/24/20 [History] Pravastatin Sodium [Pravachol] 80 mg PO HS 11/24/20 [History] Vit C/E/Zn/Coppr/Lutein/Zeaxan [Preservision Areds 2 Softgel] 1 cap PO DAILY 11/24/20 [History] Calcium Carbonate [Tums] 500 mg PO QID PRN 12/22/20 [History] Dizzy Stop Herbal 1 cap PO DAILY PRN 12/22/20 [History] Pantoprazole [Protonix] 40 mg PO DAILY 12/22/20 [History] Tolterodine ER [Detrol LA] 4 mg PO DAILY 12/22/20 [History] Azithromycin 250 mg PO DAILY 1 Days #3 tab 12/24/20 [Rx] Cephalexin [Keflex] 500 mg PO Q6HR 3 Days #12 cap 12/24/20 [Rx] amLODIPine [Norvasc] 5 mg PO DAILY #30 tab 12/24/20 [Rx] Follow up Appointment(s)/Referral(s): Rogers Reynoso MD [STAFF PHYSICIAN] - 1 Week (Device clinic follow-up in one week Follow-up Dr. Reynoso in 2 months) Varun Maher MD [Primary Care Provider] - 1-2 days Activity/Diet/Wound Care/Special Instructions: PATIENT EDUCATION MATERIAL Instructions following a heart rhythm device implant. 1. Keep dressing DRY for 5 DAYS. You may cover the area with Saran or Cling Wrap, prior to a shower. 2. The dressing will be removed in the Device Clinic at [facility]. Absorbable sutures were used to close the wound. 3. Avoid raising the left arm above the shoulder level. 4 week restriction 4. Avoid arm movements, like backscratching, rubbing the head, or pulling on a cord. 4 weeks restriction 5. Gentle range of motion movements of the shoulder, closest to the incision should be performed to avoid a frozen shoulder. (Pendulum exercises of the shoulder) 6. The opposite arm may be used freely. 7. Avoid driving for 7 days. 8. Avoid activities such as golfing, swimming, weed whacking, lifting more than 10 pounds weight, bowling, gymnastics and weight training/lifting. (6 weeks restriction) 9. Activities such as wood chopping with an axe, pull-ups in the gymnasium, power lifting, arc-welding, being close to home induction cooktops will always be a problem. 10. Arm sling is only a reminder not to raise the arm above the head. You do not need to keep the arm completely immobilized. Your free to move the arm and use it and for normal activities. In case of any problems, please call [facility], Jason Maldonado, @ [phone], Attention: Device Clinic Device clinic follow-up in 5 days Follow-up with primary security patrol officer in 2-3 months, dr reynoso Discharge Disposition: HOME SELF-CARE
== END 2020-12-24 14:36 | disposition home or self-care (01) ==
LOC: EC 09:11 → 6NMEDSUR 11:40
PROVIDERS: ADMIT Internal Medicine; ATTEND Internal Medicine
DX: R00.1 Bradycardia, unspecified (principal); I44.1 Atrioventricular block, second degree; J18.9 Pneumonia, unspecified organism; I10 Essential (primary) hypertension; E78.5 Hyperlipidemia, unspecified; Z95.2 Presence of prosthetic heart valve; K21.9 Gastro-esophageal reflux disease without esophagitis; E11.9 Type 2 diabetes mellitus without complications; F32.9 Major depressive disorder, single episode, unspecified; G47.00 Insomnia, unspecified; H35.30 Unspecified macular degeneration; G89.29 Other chronic pain; M54.5 Low back pain; E66.9 Obesity, unspecified; Z68.25 Body mass index [BMI] 25.0-25.9, adult; Z95.3 Presence of xenogenic heart valve; Z86.79 Personal history of other diseases of the circulatory system; R29.6 Repeated falls; Z87.891 Personal history of nicotine dependence; Z96.643 Presence of artificial hip joint, bilateral; Z79.82 Long term (current) use of aspirin; Z79.899 Other long term (current) drug therapy; Z79.891 Long term (current) use of opiate analgesic; Z79.1 Long term (current) use of non-steroidal anti-inflammatories (NSAID); Z20.822 Contact with and (suspected) exposure to COVID-19
CPT/HCPCS: 93005 ×2; 96372; 96374; 99285; 36415; 33208; 80053; 80048; 84443; 83735 ×2; 84484; 85025 ×2; 85610; 85730; 84145; 87635; 72110; 71045; 71046; G0378 ×3; C1898; C1785; J2250; J0690 ×3; J2001; J1650 ×2; J0461; J0696 ×2; J3010; J0131; J1885